=== PATIENT | male | born 1940 ===

== ENCOUNTER 2020-02-12 06:16 | Day surgery (SDC) | payer OTHER | END 2020-02-12 11:05 | disposition home or self-care (01) | LOC: AMB-ENDOS 06:16 | PROVIDERS: ATTEND Surgery | DX: K62.89 Other specified diseases of anus and rectum (principal); Z20.828 Contact with and (suspected) exposure to other viral communicable diseases ==

== ENCOUNTER 2023-10-05 07:32 | Outpatient (CLI) | payer OTHER | END 2023-10-05 07:51 | disposition home or self-care (01) | LOC: MRI 07:32 | PROVIDERS: ATTEND Psychiatry & Neurology Neurology | DX: G31.84 Mild cognitive impairment of uncertain or unknown etiology (principal) | CPT/HCPCS: 70551 ==